=== PATIENT | male | born 1960 | race Caucasian/White ===

== ENCOUNTER 2017-02-11 17:23 | Emergency (ER) | payer OTHER ==
[~2017-02-11] VITALS: Ht 177.8 cm; Wt 83.9 kg
[~2017-02-11 17:23] MED LIST: ACCUPRIL; ACET325 PO; ALBU90OI INH; ALPR.25 PO; ALPR1 PO; AMLO5 PO; ASPI325 PO; ASPIRIN; ATOR10 PO; ATOR40TA PO; AZIT250 PO; Amitriptyline100 MG PO; BP MEDICATION; CEPH500 PO; CHOL10002; CLON.1 PO; CODBUTACEC PO; CYAN100 PO; CYCL10 PO; DULO60 PO; FLUC100 PO; FLUC200 PO; FLUT110OIA IH; FLUT44OIA IH; FOLI400 PO; GABA300 PO; HYDACE5 PO; HYDCOR2.5B TOP; IBUPROFEN; K-Dur20 MEQ PO; Keflex500 MG PO; LEVO750 PO; LISHYD2025 PO; LISI5 PO; MEDICAL MARJUANA; MELO7.5 PO; METO50ER PO; MIRALAX17 GM PO; MULVITMIND PO; NAPR500 PO; ONDA4ODT MM; OXYACE5T PO; OXYC5 PO; PHENA100 PO; POTCHL20ER PO; PRED20 PO; PROM25 PO; PROP60 PO; QUIN10 PO; RXONDA4ODT MM; RXOXYACE PO; SUMA25 PO; TAMS.4ER PO; TRAM50 PO; TRIA80TC TOP; VENL150ER PO; VENL75ER PO; XANEX; ZIPSOR25 MG PO; [UNRECOGNIZED DRUG - REMARK]; vitamin b-1 PO
[2017-02-11 17:58] LABS: BASOPHILS ABSOLUTE AUTO 0.03 K/mm3 (0.00-0.23); BASOPHILS PERCENT AUTO 0 % (0-2); EOSINOPHILS ABSOLUTE AUTO 0.07 K/mm3 (0.00-0.68); EOSINOPHILS PERCENT AUTO 1 % (0-6); Hematocrit 49.5 % (37.0-53.0); Hemoglobin 17.1 g/dL (13.5-17.5); IMMATURE GRAN ABSOLUTE AUTO 0.04 K/mm3 (0.00-0.10); IMMATURE GRAN PERCENT AUTO 0 % (0-1); LYMPHOCYTES ABSOLUTE AUTO 1.79 K/mm3 (0.84-5.20); LYMPHOCYTES PERCENT AUTO 13 % (21-46); MONOCYTES ABSOLUTE AUTO 0.74 K/mm3 (0.16-1.47); MONOCYTES PERCENT AUTO 5 % (4-13); Mean Corpuscular HGB 31.6 pg (26.0-34.0); Mean Corpuscular HGB Conc 34.5 g/dL (31.5-36.5); Mean Corpuscular Volume 92 fL (80-100); Mean Platelet Volume 10.5 fL (9.1-12.4); NEUTROPHILS ABSOLUTE AUTO 11.11 K/mm3 (1.96-9.15); NEUTROPHILS PERCENT AUTO 81 % (41-73); Platelet Count 275 K/mm3 (150-400); RDW Coefficient Variation 13.9 % (11.7-14.2); RDW Standard Deviation 46.2 fL (35.1-46.3); Red Blood Cell Count 5.41 M/mm3 (4.30-5.90); White Blood Cell Count 13.78 K/mm3 (4.00-11.30)
[2017-02-11 18:24] LABS: Alanine Aminotransfer (ALT/SGP 34 U/L (12-78); Albumin, Blood 3.9 g/dL (3.4-5.0); Albumin/Globulin Ratio 0.9 (0.8-1.8); Alk Phos 132 U/L (50-136); Anion Gap 11 mmol/L (6-16); Aspartate Aminotrans (AST/SGOT 30 U/L (12-37); Bilirubin, Total 0.4 mg/dL (0.1-1.0); Blood Urea Nitrogen 6 mg/dL (8-24); Bun/Creatinine Ratio 7.3 (12.0-20.0); CO2, Blood 26 mmol/L (21-32); Calcium, Blood 9.1 mg/dL (8.5-10.1); Chloride, Blood 99 mmol/L (98-108); Creatinine, Blood 0.83 mg/dL (0.60-1.20); Globulin, Blood 4.2 g/dL (2.2-4.0); Glomerular Filtration Rate >60 (60-); Glucose, Blood 134 mg/dL (70-99); Potassium, Blood 2.8 mmol/L (3.5-5.5); Sodium, Blood 136 mmol/L (136-145); Total Protein, Blood 8.1 g/dL (6.4-8.2)
[2017-02-11 18:39] LABS: Source, Urine Clean Catch
[2017-02-11 18:51] LABS: Appearance, Urine Clear (Clear); Bilirubin, Urine Neg (Neg); Blood, Urine Neg (Neg); Color, Urine Yellow (P-Yellow); Glucose Qualitative, Urine Neg (Neg); Ketones, Urine Neg (Neg); Leukocyte Esterase, Urine Neg (Neg); Nitrite, Urine Neg (Neg); Protein, Urine 1+ (Neg); Urobilinogen, Urine NORM (Normal)
[2017-02-11] MEDS ORDERED: Protonix40 MG PO (20:50)
[2017-09-06] MEDS ORDERED: ACET325 PO (08:53)
[2017-09-06] MEDS ORDERED: AMIT50 PO (08:54)
[2017-09-06] MEDS ORDERED: AMLO5 PO (08:55)
[2017-09-06] MEDS ORDERED: Aspir 8181 MG PO (08:55)
[2017-09-06] MEDS ORDERED: ATOR40TA PO (08:56)
[2017-09-06] MEDS ORDERED: CLOP75 PO (08:56)
[2017-09-06] MEDS ORDERED: METO50 PO (08:57)
[2017-09-06] MEDS ORDERED: NITR.4SL SL (08:59)
[2017-09-06] MEDS ORDERED: PANT40 PO (08:59)
[2017-09-06] MEDS ORDERED: TAMS.4ER PO (09:00)
== END 2017-02-11 21:00 | disposition home or self-care (01) ==
LOC: ER 17:23
PROVIDERS: Emergency Medicine
DX: K29.20 Alcoholic gastritis without bleeding (principal); F10.10 Alcohol abuse, uncomplicated; I10 Essential (primary) hypertension; J45.909 Unspecified asthma, uncomplicated; F17.200 Nicotine dependence, unspecified, uncomplicated; Z86.73 Personal history of transient ischemic attack (TIA), and cerebral infarction without residual deficits; Z88.6 Allergy status to analgesic agent; Z88.5 Allergy status to narcotic agent; Z88.8 Allergy status to other drugs, medicaments and biological substances; Z79.899 Other long term (current) drug therapy
CPT/HCPCS: 36415; 74177; 80053; 83690; 85025; 99284; Q9967

== ENCOUNTER 2017-04-09 13:33 | Emergency (ER) | payer OTHER ==
[~2017-04-09] VITALS: Ht 167.6 cm; Wt 108.9 kg
[~2017-04-09 13:33] MED LIST changes: +Protonix40 MG PO
[2017-04-09 14:56] LABS: BASOPHILS ABSOLUTE AUTO 0.05 K/mm3 (0.00-0.23); BASOPHILS PERCENT AUTO 1 % (0-2); EOSINOPHILS ABSOLUTE AUTO 0.07 K/mm3 (0.00-0.68); EOSINOPHILS PERCENT AUTO 1 % (0-6); Hematocrit 47.4 % (37.0-53.0); Hemoglobin 16.8 g/dL (13.5-17.5); IMMATURE GRAN ABSOLUTE AUTO 0.03 K/mm3 (0.00-0.10); IMMATURE GRAN PERCENT AUTO 0 % (0-1); LYMPHOCYTES ABSOLUTE AUTO 1.17 K/mm3 (0.84-5.20); LYMPHOCYTES PERCENT AUTO 13 % (21-46); MONOCYTES ABSOLUTE AUTO 0.89 K/mm3 (0.16-1.47); MONOCYTES PERCENT AUTO 10 % (4-13); Mean Corpuscular HGB 31.6 pg (26.0-34.0); Mean Corpuscular HGB Conc 35.4 g/dL (31.5-36.5); Mean Corpuscular Volume 89 fL (80-100); Mean Platelet Volume 9.9 fL (9.1-12.4); NEUTROPHILS ABSOLUTE AUTO 7.01 K/mm3 (1.96-9.15); NEUTROPHILS PERCENT AUTO 76 % (41-73); Platelet Count 207 K/mm3 (150-400); RDW Coefficient Variation 13.9 % (11.7-14.2); RDW Standard Deviation 45.2 fL (35.1-46.3); Red Blood Cell Count 5.31 M/mm3 (4.30-5.90); White Blood Cell Count 9.22 K/mm3 (4.00-11.30)
[2017-04-09 15:19] LABS: Alanine Aminotransfer (ALT/SGP 84 U/L (12-78); Albumin, Blood 3.6 g/dL (3.4-5.0); Albumin/Globulin Ratio 0.8 (0.8-1.8); Alk Phos 108 U/L (50-136); Anion Gap 11 mmol/L (6-16); Aspartate Aminotrans (AST/SGOT 141 U/L (12-37); Bilirubin, Total 1.4 mg/dL (0.1-1.0); Blood Urea Nitrogen 6 mg/dL (8-24); Bun/Creatinine Ratio 8.2 (12.0-20.0); CO2, Blood 32 mmol/L (21-32); Calcium, Blood 8.8 mg/dL (8.5-10.1); Chloride, Blood 91 mmol/L (98-108); Creatinine, Blood 0.73 mg/dL (0.60-1.20); Globulin, Blood 4.6 g/dL (2.2-4.0); Glomerular Filtration Rate >60 (60-); Glucose, Blood 122 mg/dL (70-99); Potassium, Blood 2.6 mmol/L (3.5-5.5); Sodium, Blood 134 mmol/L (136-145); Total Protein, Blood 8.2 g/dL (6.4-8.2); Troponin I 0.041 ng/mL (0.000-0.040)
[2017-04-09 15:21] LABS: Influenza A Negative (NEGATIVE); Influenza B Negative (NEGATIVE)
[2017-09-06] MEDS ORDERED: ACET325 PO (08:53)
[2017-09-06] MEDS ORDERED: AMIT50 PO (08:54)
[2017-09-06] MEDS ORDERED: Aspir 8181 MG PO (08:55)
[2017-09-06] MEDS ORDERED: AMLO5 PO (08:55)
[2017-09-06] MEDS ORDERED: CLOP75 PO (08:56)
[2017-09-06] MEDS ORDERED: ATOR40TA PO (08:56)
[2017-09-06] MEDS ORDERED: METO50 PO (08:57)
[2017-09-06] MEDS ORDERED: NITR.4SL SL (08:59)
[2017-09-06] MEDS ORDERED: PANT40 PO (08:59)
[2017-09-06] MEDS ORDERED: TAMS.4ER PO (09:00)
== END 2017-04-09 17:51 | disposition home or self-care (01) ==
LOC: ER 13:33
PROVIDERS: Emergency Medicine
DX: R69 Illness, unspecified (principal); R79.89 Other specified abnormal findings of blood chemistry; F10.239 Alcohol dependence with withdrawal, unspecified; I10 Essential (primary) hypertension; J45.909 Unspecified asthma, uncomplicated; F17.200 Nicotine dependence, unspecified, uncomplicated; Z88.8 Allergy status to other drugs, medicaments and biological substances; Z88.5 Allergy status to narcotic agent; Z79.899 Other long term (current) drug therapy; Z86.73 Personal history of transient ischemic attack (TIA), and cerebral infarction without residual deficits
CPT/HCPCS: 36415; 71045; 80053; 83690; 84484; 85025; 87804; 93005; 93010; 96361; 96374; 99284; J2405; J7030

== ENCOUNTER 2017-08-24 00:49 | Emergency (ER) | payer OTHER ==
[~2017-08-24] VITALS: Ht 182.9 cm; Wt 108.9 kg
[2017-08-24] MEDS ORDERED: Amoxicillin875 MG PO (01:43)
[2017-08-24] MEDS ORDERED: IBUP800 PO (01:43)
== END 2017-08-24 02:03 | disposition home or self-care (01) ==
LOC: ER 00:49
DX: K04.7 Periapical abscess without sinus (principal); Z88.8 Allergy status to other drugs, medicaments and biological substances; Z88.5 Allergy status to narcotic agent; Z79.899 Other long term (current) drug therapy; Z79.2 Long term (current) use of antibiotics; I10 Essential (primary) hypertension; J45.909 Unspecified asthma, uncomplicated; F17.200 Nicotine dependence, unspecified, uncomplicated
CPT/HCPCS: 96374; 99283-25; J3010

== ENCOUNTER 2017-08-26 19:02 | Inpatient (IN) | payer OTHER ==
[~2017-08-26] VITALS: Ht 182.9 cm; Wt 101.3 kg
[~2017-08-26 19:02] MED LIST changes: +Amoxicillin875 MG PO; +IBUP800 PO
[2017-08-26 19:54] LABS: BASOPHILS ABSOLUTE AUTO 0.03 K/mm3 (0.00-0.23); BASOPHILS PERCENT AUTO 0 % (0-2); EOSINOPHILS ABSOLUTE AUTO 0.05 K/mm3 (0.00-0.68); EOSINOPHILS PERCENT AUTO 1 % (0-6); IMMATURE GRAN ABSOLUTE AUTO 0.04 K/mm3 (0.00-0.10); IMMATURE GRAN PERCENT AUTO 0 % (0-1); LYMPHOCYTES ABSOLUTE AUTO 1.78 K/mm3 (0.84-5.20); LYMPHOCYTES PERCENT AUTO 20 % (21-46); MONOCYTES ABSOLUTE AUTO 0.66 K/mm3 (0.16-1.47); MONOCYTES PERCENT AUTO 7 % (4-13); Mean Corpuscular HGB 30.5 pg (26.0-34.0); Mean Corpuscular HGB Conc 34.7 g/dL (31.5-36.5); Mean Corpuscular Volume 88 fL (80-100); Mean Platelet Volume 10.3 fL (9.1-12.4); NEUTROPHILS ABSOLUTE AUTO 6.44 K/mm3 (1.96-9.15); NEUTROPHILS PERCENT AUTO 72 % (41-73); Platelet Count 264 K/mm3 (150-400); RDW Coefficient Variation 12.8 % (11.7-14.2); RDW Standard Deviation 41.2 fL (35.1-46.3); Red Blood Cell Count 6.56 M/mm3 (4.30-5.90)
[2017-08-26 19:56] LABS: Hematocrit 57.6 % (37.0-53.0)
[2017-08-26 20:10] LABS: Alanine Aminotransfer (ALT/SGP 41 U/L (12-78); Albumin, Blood 4.1 g/dL (3.4-5.0); Albumin/Globulin Ratio 0.9 (0.8-1.8); Alk Phos 99 U/L (50-136); Anion Gap 14 mmol/L (6-16); Aspartate Aminotrans (AST/SGOT 60 U/L (12-37); Bilirubin, Total 1.4 mg/dL (0.1-1.0); Blood Urea Nitrogen 9 mg/dL (8-24); Bun/Creatinine Ratio 8.2 (12.0-20.0); CO2, Blood 25 mmol/L (21-32); Calcium, Blood 10.3 mg/dL (8.5-10.1); Chloride, Blood 95 mmol/L (98-108); Globulin, Blood 4.5 g/dL (2.2-4.0); Glomerular Filtration Rate >60 (60-); Glucose, Blood 160 mg/dL (70-99); Potassium, Blood 2.9 mmol/L (3.5-5.5); Sodium, Blood 134 mmol/L (136-145); Total Protein, Blood 8.6 g/dL (6.4-8.2); Troponin I 0.057 ng/mL (0.000-0.040)
[2017-08-27 00:02] LABS: Troponin I 0.608 ng/mL (0.000-0.040)
[2017-08-27 05:11] LABS: U Amphetamine Screen DETECTED; U Barbituate Screen Not Detected; U Benzodiazapine Screen DETECTED; U Buprenorphine Screen Not Detected; U Cannabinoids Screen DETECTED; U Cocaine Screen Not Detected; U Methadone Screen Not Detected; U Methamphetamine Screen Not Detected; U Opiates Screen Not Detected; U Oxycodone Screen DETECTED; U Phencyclidine Screen Not Detected; U Propoxyphene Screen Not Detected
[2017-08-27 07:49] LABS: Hematocrit 52.3 % (37.0-53.0); Hemoglobin 17.2 g/dL (13.5-17.5); Mean Corpuscular HGB 29.8 pg (26.0-34.0); Mean Corpuscular HGB Conc 32.9 g/dL (31.5-36.5); Mean Platelet Volume 10.4 fL (9.1-12.4); Platelet Count 189 K/mm3 (150-400); RDW Standard Deviation 42.6 fL (35.1-46.3); Red Blood Cell Count 5.77 M/mm3 (4.30-5.90); White Blood Cell Count 8.71 K/mm3 (4.00-11.30)
[2017-08-27 07:58] LABS: Mean Corpuscular Volume 91 fL (80-100)
[2017-08-27 08:09] LABS: Alanine Aminotransfer (ALT/SGP 41 U/L (12-78); Albumin, Blood 3.6 g/dL (3.4-5.0); Alk Phos 75 U/L (50-136); Anion Gap 7 mmol/L (6-16); Aspartate Aminotrans (AST/SGOT 59 U/L (12-37); Bilirubin, Total 1.1 mg/dL (0.1-1.0); Blood Urea Nitrogen 11 mg/dL (8-24); Bun/Creatinine Ratio 10.7 (12.0-20.0); CO2, Blood 32 mmol/L (21-32); Calcium, Blood 8.8 mg/dL (8.5-10.1); Chloride, Blood 99 mmol/L (98-108); Creatinine, Blood 1.03 mg/dL (0.60-1.20); Globulin, Blood 3.7 g/dL (2.2-4.0); Glomerular Filtration Rate >60 (60-); Glucose, Blood 95 mg/dL (70-99); Potassium, Blood 3.5 mmol/L (3.5-5.5); Sodium, Blood 138 mmol/L (136-145); Total Protein, Blood 7.3 g/dL (6.4-8.2)
[2017-08-27 09:05] LABS: Troponin I 0.641 ng/mL (0.000-0.040)
[2017-08-27 14:34] LABS: Campylobacter Sp Not Detected (NOT DETECT); Enteroaggregative E. coli-EAEC Not Detected (NOT DETECT); Enterotoxigenic E. coli-ETEC Not Detected (NOT DETECT); Plesiomonas Shigelloides Not Detected (NOT DETECT); Salmonella Sp Not Detected (NOT DETECT); Vibrio Cholerae Not Detected (NOT DETECT); Vibrio Sp Not Detected (NOT DETECT); Yersinia Enterocolitica Not Detected (NOT DETECT)
[2017-08-27 14:35] LABS: Adenovirus F 40/41 Not Detected (NOT DETECT); Astrovirus Not Detected (NOT DETECT); Cryptosporidium Not Detected (NOT DETECT); Cyclospora Cayetanensis Not Detected (NOT DETECT); E. Coli O157 Not Detected (NOT DETECT); Entamoeba Histolytica Not Detected (NOT DETECT); Giardia Lamblia Not Detected (NOT DETECT); Norovirus GI/GII Not Detected (NOT DETECT); Rotavirus A Not Detected (NOT DETECT); Sapovirus Not Detected (NOT DETECT); Shiga Toxin-prod E. coli-STEC Not Detected (NOT DETECT); Shigella/Enteroin E. coli-EIEC Not Detected (NOT DETECT)
[2017-08-27 14:52] LABS: Creatine Kinase MB 3.3 ng/mL (0.0-3.6); Creatine Kinase MB Index 2.6 (0.0-4.0)
[2017-08-27 19:37] LABS: Enteropathogenic E. coli-EPEC Detected (NOT DETECT)
[2017-08-28 05:04] LABS: BASOPHILS ABSOLUTE AUTO 0.02 K/mm3 (0.00-0.23); BASOPHILS PERCENT AUTO 0 % (0-2); EOSINOPHILS ABSOLUTE AUTO 0.09 K/mm3 (0.00-0.68); EOSINOPHILS PERCENT AUTO 1 % (0-6); Hematocrit 49.1 % (37.0-53.0); Hemoglobin 16.6 g/dL (13.5-17.5); IMMATURE GRAN ABSOLUTE AUTO 0.03 K/mm3 (0.00-0.10); IMMATURE GRAN PERCENT AUTO 0 % (0-1); LYMPHOCYTES ABSOLUTE AUTO 1.81 K/mm3 (0.84-5.20); LYMPHOCYTES PERCENT AUTO 21 % (21-46); MONOCYTES ABSOLUTE AUTO 0.81 K/mm3 (0.16-1.47); MONOCYTES PERCENT AUTO 9 % (4-13); Mean Corpuscular HGB 30.1 pg (26.0-34.0); Mean Corpuscular HGB Conc 33.8 g/dL (31.5-36.5); Mean Corpuscular Volume 89 fL (80-100); Mean Platelet Volume 10.5 fL (9.1-12.4); NEUTROPHILS ABSOLUTE AUTO 5.88 K/mm3 (1.96-9.15); NEUTROPHILS PERCENT AUTO 68 % (41-73); Platelet Count 200 K/mm3 (150-400); RDW Coefficient Variation 12.5 % (11.7-14.2); Red Blood Cell Count 5.52 M/mm3 (4.30-5.90); White Blood Cell Count 8.64 K/mm3 (4.00-11.30)
[2017-08-28 05:37] LABS: Albumin, Blood 3.4 g/dL (3.4-5.0); Anion Gap 9 mmol/L (6-16); Blood Urea Nitrogen 12 mg/dL (8-24); Bun/Creatinine Ratio 14.9 (12.0-20.0); CO2, Blood 27 mmol/L (21-32); Calcium, Blood 8.5 mg/dL (8.5-10.1); Chloride, Blood 100 mmol/L (98-108); Creatinine, Blood 0.81 mg/dL (0.60-1.20); Glomerular Filtration Rate >60 (60-); Glucose, Blood 90 mg/dL (70-99); Phosphorus, Blood 2.7 mg/dL (2.5-4.9); Potassium, Blood 3.6 mmol/L (3.5-5.5); Sodium, Blood 136 mmol/L (136-145)
[2017-08-29 03:53] LABS: BASOPHILS ABSOLUTE AUTO 0.03 K/mm3 (0.00-0.23); BASOPHILS PERCENT AUTO 0 % (0-2); EOSINOPHILS ABSOLUTE AUTO 0.11 K/mm3 (0.00-0.68); EOSINOPHILS PERCENT AUTO 2 % (0-6); Hematocrit 46.1 % (37.0-53.0); Hemoglobin 15.7 g/dL (13.5-17.5); IMMATURE GRAN ABSOLUTE AUTO 0.01 K/mm3 (0.00-0.10); IMMATURE GRAN PERCENT AUTO 0 % (0-1); LYMPHOCYTES ABSOLUTE AUTO 1.34 K/mm3 (0.84-5.20); LYMPHOCYTES PERCENT AUTO 19 % (21-46); MONOCYTES ABSOLUTE AUTO 0.66 K/mm3 (0.16-1.47); MONOCYTES PERCENT AUTO 9 % (4-13); Mean Corpuscular HGB 30.7 pg (26.0-34.0); Mean Corpuscular HGB Conc 34.1 g/dL (31.5-36.5); Mean Corpuscular Volume 90 fL (80-100); Mean Platelet Volume 10.3 fL (9.1-12.4); NEUTROPHILS ABSOLUTE AUTO 4.98 K/mm3 (1.96-9.15); NEUTROPHILS PERCENT AUTO 70 % (41-73); Platelet Count 146 K/mm3 (150-400); RDW Coefficient Variation 12.6 % (11.7-14.2); RDW Standard Deviation 41.8 fL (35.1-46.3); Red Blood Cell Count 5.11 M/mm3 (4.30-5.90); White Blood Cell Count 7.13 K/mm3 (4.00-11.30)
[2017-08-29 04:11] LABS: Albumin, Blood 3.1 g/dL (3.4-5.0); Anion Gap 10 mmol/L (6-16); Blood Urea Nitrogen 14 mg/dL (8-24); Bun/Creatinine Ratio 17.2 (12.0-20.0); CO2, Blood 28 mmol/L (21-32); Calcium, Blood 8.3 mg/dL (8.5-10.1); Chloride, Blood 102 mmol/L (98-108); Creatinine, Blood 0.82 mg/dL (0.60-1.20); Glomerular Filtration Rate >60 (60-); Glucose, Blood 80 mg/dL (70-99); Phosphorus, Blood 3.8 mg/dL (2.5-4.9); Potassium, Blood 3.4 mmol/L (3.5-5.5); Sodium, Blood 140 mmol/L (136-145)
[2017-08-30 04:13] LABS: BASOPHILS ABSOLUTE AUTO 0.04 K/mm3 (0.00-0.23); BASOPHILS PERCENT AUTO 1 % (0-2); EOSINOPHILS ABSOLUTE AUTO 0.18 K/mm3 (0.00-0.68); EOSINOPHILS PERCENT AUTO 2 % (0-6); Hemoglobin 16.4 g/dL (13.5-17.5); IMMATURE GRAN ABSOLUTE AUTO 0.04 K/mm3 (0.00-0.10); IMMATURE GRAN PERCENT AUTO 1 % (0-1); LYMPHOCYTES ABSOLUTE AUTO 2.21 K/mm3 (0.84-5.20); LYMPHOCYTES PERCENT AUTO 27 % (21-46); MONOCYTES ABSOLUTE AUTO 1.02 K/mm3 (0.16-1.47); MONOCYTES PERCENT AUTO 12 % (4-13); Mean Corpuscular HGB 30.6 pg (26.0-34.0); Mean Corpuscular HGB Conc 33.5 g/dL (31.5-36.5); Mean Corpuscular Volume 91 fL (80-100); Mean Platelet Volume 10.5 fL (9.1-12.4); NEUTROPHILS ABSOLUTE AUTO 4.79 K/mm3 (1.96-9.15); NEUTROPHILS PERCENT AUTO 58 % (41-73); Platelet Count 169 K/mm3 (150-400); RDW Standard Deviation 43.4 fL (35.1-46.3); Red Blood Cell Count 5.36 M/mm3 (4.30-5.90); White Blood Cell Count 8.28 K/mm3 (4.00-11.30)
[2017-08-30 04:30] LABS: Anion Gap 8 mmol/L (6-16); Blood Urea Nitrogen 11 mg/dL (8-24); CO2, Blood 30 mmol/L (21-32); Calcium, Blood 8.6 mg/dL (8.5-10.1); Chloride, Blood 102 mmol/L (98-108); Glomerular Filtration Rate >60 (60-); Glucose, Blood 86 mg/dL (70-99); Magnesium, Blood 1.9 mg/dL (1.6-2.4); Potassium, Blood 4.1 mmol/L (3.5-5.5); Sodium, Blood 140 mmol/L (136-145)
[2017-08-31 03:59] LABS: BASOPHILS ABSOLUTE AUTO 0.03 K/mm3 (0.00-0.23); BASOPHILS PERCENT AUTO 0 % (0-2); EOSINOPHILS ABSOLUTE AUTO 0.15 K/mm3 (0.00-0.68); EOSINOPHILS PERCENT AUTO 2 % (0-6); Hematocrit 47.3 % (37.0-53.0); IMMATURE GRAN ABSOLUTE AUTO 0.03 K/mm3 (0.00-0.10); IMMATURE GRAN PERCENT AUTO 0 % (0-1); LYMPHOCYTES ABSOLUTE AUTO 1.65 K/mm3 (0.84-5.20); LYMPHOCYTES PERCENT AUTO 18 % (21-46); MONOCYTES ABSOLUTE AUTO 1.18 K/mm3 (0.16-1.47); MONOCYTES PERCENT AUTO 13 % (4-13); Mean Corpuscular HGB 30.8 pg (26.0-34.0); Mean Corpuscular HGB Conc 33.8 g/dL (31.5-36.5); Mean Corpuscular Volume 91 fL (80-100); Mean Platelet Volume 10.7 fL (9.1-12.4); NEUTROPHILS ABSOLUTE AUTO 6.07 K/mm3 (1.96-9.15); NEUTROPHILS PERCENT AUTO 67 % (41-73); Platelet Count 182 K/mm3 (150-400); RDW Standard Deviation 43.4 fL (35.1-46.3); Red Blood Cell Count 5.19 M/mm3 (4.30-5.90); White Blood Cell Count 9.11 K/mm3 (4.00-11.30)
[2017-08-31 04:16] LABS: Anion Gap 8 mmol/L (6-16); Blood Urea Nitrogen 9 mg/dL (8-24); Bun/Creatinine Ratio 10.2 (12.0-20.0); CO2, Blood 29 mmol/L (21-32); Calcium, Blood 8.3 mg/dL (8.5-10.1); Chloride, Blood 103 mmol/L (98-108); Creatinine, Blood 0.88 mg/dL (0.60-1.20); Glomerular Filtration Rate >60 (60-); Glucose, Blood 94 mg/dL (70-99); Potassium, Blood 3.7 mmol/L (3.5-5.5); Sodium, Blood 140 mmol/L (136-145)
[2017-09-02 05:21] LABS: Anion Gap 5 mmol/L (6-16); Blood Urea Nitrogen 8 mg/dL (8-24); Bun/Creatinine Ratio 9.1 (12.0-20.0); CO2, Blood 31 mmol/L (21-32); Calcium, Blood 8.4 mg/dL (8.5-10.1); Chloride, Blood 104 mmol/L (98-108); Creatinine, Blood 0.88 mg/dL (0.60-1.20); Glomerular Filtration Rate >60 (60-); Glucose, Blood 91 mg/dL (70-99); Potassium, Blood 3.8 mmol/L (3.5-5.5); Sodium, Blood 140 mmol/L (136-145)
[2017-09-02] MEDS ORDERED: ASPI81CH PO (15:15)
[2017-09-02] MEDS ORDERED: DOCU100 PO (15:15)
[2017-09-02] MEDS ORDERED: FURO20 PO (15:16)
[2017-09-02] MEDS ORDERED: ATOR40TA PO (15:16)
== END 2017-09-02 15:52 | disposition home or self-care (01) | DRG 280 ==
LOC: ER 19:02 → MEDS 22:49 → ICUW 22:49 → ER 22:49 → ICUW 08-27 00:01 → MEDS 08-27 00:07 → ICUW 08-28 05:40 → MEDS 08-31 04:56 → ENPENDDIS 09-02 14:50 → EDPENDDIS 09-02 14:50 → MEDS 09-02 15:52
PROVIDERS: Emergency Medicine; Family Medicine; Internal Medicine; Internal Medicine Cardiovascular Disease
DX: I21.4 Non-ST elevation (NSTEMI) myocardial infarction (principal); G92 Toxic encephalopathy; F10.231 Alcohol dependence with withdrawal delirium; E87.1 Hypo-osmolality and hyponatremia; K52.9 Noninfective gastroenteritis and colitis, unspecified; E87.6 Hypokalemia; E86.0 Dehydration; E83.42 Hypomagnesemia; B96.20 Unspecified Escherichia coli [E. coli] as the cause of diseases classified elsewhere; I25.119 Atherosclerotic heart disease of native coronary artery with unspecified angina pectoris; I10 Essential (primary) hypertension; I69.320 Aphasia following cerebral infarction; J45.909 Unspecified asthma, uncomplicated; K76.0 Fatty (change of) liver, not elsewhere classified; F15.10 Other stimulant abuse, uncomplicated; F13.10 Sedative, hypnotic or anxiolytic abuse, uncomplicated; F12.10 Cannabis abuse, uncomplicated; F11.10 Opioid abuse, uncomplicated; R45.1 Restlessness and agitation; F17.220 Nicotine dependence, chewing tobacco, uncomplicated; Z78.1 Physical restraint status; Z79.899 Other long term (current) drug therapy
CPT/HCPCS: 36415; 71045; 74177; 78452; 80048; 80053; 80069; 82550; 82553; 83605; 83690; 83735; 84145; 84484; 85025; 85027; 87507; 93005; 93010; 93017; 93306; 96361; 96374; 96375; 99285-25; A9500; C9113; J0360; J0744; J1650; J1885; J1940; J2060; J2405; J2785; J3010; J3411; J3475; J3480; J7030; J7042; Q9967

== ENCOUNTER 2018-05-23 13:13 | Emergency (ER) | payer OTHER ==
[~2018-05-23] VITALS: Ht 182.9 cm; Wt 104.3 kg
[~2018-05-23 13:13] MED LIST changes: +AMIT50 PO; +ASPI81CH PO; +Aspir 8181 MG PO; +CLOP75 PO; +DOCU100 PO; +FURO20 PO; +METO50 PO; +NITR.4SL SL; +PANT40 PO
[2018-05-23 14:12] LABS: BASOPHILS ABSOLUTE AUTO 0.04 K/mm3 (0.00-0.23); BASOPHILS PERCENT AUTO 0 % (0-2); EOSINOPHILS ABSOLUTE AUTO 0.03 K/mm3 (0.00-0.68); EOSINOPHILS PERCENT AUTO 0 % (0-6); Hematocrit 50.5 % (37.0-53.0); Hemoglobin 17.7 g/dL (13.5-17.5); IMMATURE GRAN ABSOLUTE AUTO 0.03 K/mm3 (0.00-0.10); IMMATURE GRAN PERCENT AUTO 0 % (0-1); LYMPHOCYTES ABSOLUTE AUTO 2.29 K/mm3 (0.84-5.20); LYMPHOCYTES PERCENT AUTO 23 % (21-46); MONOCYTES ABSOLUTE AUTO 0.91 K/mm3 (0.16-1.47); MONOCYTES PERCENT AUTO 9 % (4-13); Mean Corpuscular HGB 32.3 pg (26.0-34.0); Mean Corpuscular Volume 92 fL (80-100); Mean Platelet Volume 9.9 fL (9.1-12.4); NEUTROPHILS ABSOLUTE AUTO 6.66 K/mm3 (1.96-9.15); NEUTROPHILS PERCENT AUTO 67 % (41-73); Platelet Count 282 K/mm3 (150-400); RDW Coefficient Variation 13.7 % (11.7-14.2); RDW Standard Deviation 46.6 fL (35.1-46.3); Red Blood Cell Count 5.48 M/mm3 (4.30-5.90); White Blood Cell Count 9.96 K/mm3 (4.00-11.30)
[2018-05-23 14:47] LABS: Alanine Aminotransfer (ALT/SGP 66 U/L (12-78); Albumin, Blood 3.9 g/dL (3.4-5.0); Alk Phos 143 U/L (50-136); Anion Gap 15 mmol/L (6-16); Aspartate Aminotrans (AST/SGOT 85 U/L (12-37); Bilirubin, Total 0.9 mg/dL (0.1-1.0); Blood Urea Nitrogen 5 mg/dL (8-24); Bun/Creatinine Ratio 6.8 (12.0-20.0); CO2, Blood 26 mmol/L (21-32); Calcium, Blood 8.8 mg/dL (8.5-10.1); Chloride, Blood 98 mmol/L (98-108); Creatinine, Blood 0.73 mg/dL (0.60-1.20); Glomerular Filtration Rate >60 (60-); Glucose, Blood 105 mg/dL (70-99); Potassium, Blood 3.1 mmol/L (3.5-5.5); Sodium, Blood 139 mmol/L (136-145); Total Protein, Blood 7.9 g/dL (6.4-8.2); Troponin I 0.034 ng/mL (0.000-0.040)
[2018-05-23] MEDS ORDERED: Prinivil10 MG PO (17:05)
== END 2018-05-23 18:33 | disposition home or self-care (01) ==
LOC: ER 13:13
PROVIDERS: Internal Medicine
DX: R07.9 Chest pain, unspecified (principal); F10.129 Alcohol abuse with intoxication, unspecified; J45.909 Unspecified asthma, uncomplicated; I10 Essential (primary) hypertension; L40.9 Psoriasis, unspecified; Z88.8 Allergy status to other drugs, medicaments and biological substances; Z79.82 Long term (current) use of aspirin; Z79.899 Other long term (current) drug therapy; Z88.5 Allergy status to narcotic agent
CPT/HCPCS: 36415; 71045; 80053; 84484; 85025; 93005; 93010; 96361; 96374; 96375; 96376; 99285-25; G0480; J2060; J7030

== ENCOUNTER 2023-10-04 16:07 | Emergency (ER) | payer OTHER ==
[~2023-10-04] VITALS: Ht 182.9 cm; Wt 108.9 kg
[~2023-10-04 16:07] MED LIST changes: +Prinivil10 MG PO
[2023-10-04] MEDS ORDERED: LORazepam 2 MG/ML 1ML Injection IV PRN (16:20)
[2023-10-04 16:33] LABS: BASOPHILS ABSOLUTE AUTO 0.06 K/mm3 (0.00-0.23); BASOPHILS PERCENT AUTO 1 % (0-2); EOSINOPHILS ABSOLUTE AUTO 0.01 K/mm3 (0.00-0.68); EOSINOPHILS PERCENT AUTO 0 % (0-6); Hematocrit 49.1 % (37.0-53.0); Hemoglobin 16.9 g/dL (13.5-17.5); IMMATURE GRAN ABSOLUTE AUTO 0.02 K/mm3 (0.00-0.10); IMMATURE GRAN PERCENT AUTO 0 % (0-1); LYMPHOCYTES ABSOLUTE AUTO 0.65 K/mm3 (0.84-5.20); LYMPHOCYTES PERCENT AUTO 8 % (21-46); MONOCYTES ABSOLUTE AUTO 0.77 K/mm3 (0.16-1.47); MONOCYTES PERCENT AUTO 9 % (4-13); Mean Corpuscular HGB 32.3 pg (26.0-34.0); Mean Corpuscular HGB Conc 34.4 g/dL (31.5-36.5); Mean Corpuscular Volume 94 fL (80-100); Mean Platelet Volume 9.7 fL (9.1-12.4); NEUTROPHILS ABSOLUTE AUTO 6.94 K/mm3 (1.96-9.15); NEUTROPHILS PERCENT AUTO 82 % (41-73); Platelet Count 194 K/mm3 (150-400); RDW Coefficient Variation 13.5 % (11.7-14.2); RDW Standard Deviation 46.6 fL (35.1-46.3); Red Blood Cell Count 5.24 M/mm3 (4.30-5.90); White Blood Cell Count 8.45 K/mm3 (4.00-11.30)
[2023-10-04 17:03] LABS: Albumin/Globulin Ratio 0.9 (0.8-1.8); Bilirubin, Total 1.1 mg/dL (0.1-1.0); Bun/Creatinine Ratio 15.5 (12.0-20.0); Calcium, Blood 9.6 mg/dL (8.5-10.1); Creatinine, Blood 0.77 mg/dL (0.60-1.20); Globulin, Blood 4.6 g/dL (2.2-4.0); Potassium, Blood 3.9 mmol/L (3.5-5.5); Total Protein, Blood 8.6 g/dL (6.4-8.2)
[2023-10-04 17:16] LABS: Source, Urine Clean Catch
[2023-10-04 17:20] LABS: Appearance, Urine Cloudy (Clear); Bilirubin, Urine Neg (Neg); Blood, Urine 2+ (Neg); Color, Urine Amber (P-Yellow); Glucose Qualitative, Urine Neg (Neg); Ketones, Urine Neg (Neg); Leukocyte Esterase, Urine Neg (Neg); Nitrite, Urine Neg (Neg); Protein, Urine 3+ (Neg); Specific Gravity, Urine 1.015 (1.003-1.022); Urobilinogen, Urine 1+ (Normal)
[2023-10-04 17:28] LABS: Amorphous Mod (0-Heavy)
[2023-10-04 17:29] LABS: Calcium Oxalate Crystals Rare /hpf
[2023-10-04 17:30] LABS: Bacteria Few /hpf; Squamous Epithelial Cells Not Seen /hpf (Few); Transitional Epithelial Cells Rare /hpf (0-Rare)
[2023-10-04] MEDS ORDERED: Metoprolol Succinate 25 MG TABCR PO ONE (19:00)
[2023-10-04] MEDS ORDERED: Metoprolol Tartrate 1 MG/ML 5 ML VIAL IV ONE (19:00)
[2023-10-04] MEDS ORDERED: HydrALAZINE HCl 20 MG / ML 1ML Vial IV ONE (19:40)
[2023-10-04] MEDS ORDERED: Toprol Xl25 MG PO (20:10)
[2023-10-04] MEDS ORDERED: Neurontin 100100 MG PO (20:10)
[2023-10-04 21:15] VITALS: BP 154/90
== END 2023-10-04 21:32 | disposition home or self-care (01) ==
LOC: ER 16:07
PROVIDERS: Emergency Medicine
DX: R51.9 Headache, unspecified (principal); F10.139 Alcohol abuse with withdrawal, unspecified; I10 Essential (primary) hypertension; R25.1 Tremor, unspecified; J45.909 Unspecified asthma, uncomplicated; Z86.73 Personal history of transient ischemic attack (TIA), and cerebral infarction without residual deficits; Z87.891 Personal history of nicotine dependence; Z79.02 Long term (current) use of antithrombotics/antiplatelets; Z79.82 Long term (current) use of aspirin; Z79.899 Other long term (current) drug therapy; Z88.5 Allergy status to narcotic agent; Z88.8 Allergy status to other drugs, medicaments and biological substances
CPT/HCPCS: 70450; 80053; 80320; 81001; 85025; 93005; 93010; 96374; 96375; 99285-25; A9270; J0360; J2060

== ENCOUNTER 2023-10-18 11:22 | Emergency (ER) | payer SELFPAY ==
[~2023-10-18] VITALS: Ht 182.9 cm; Wt 108.9 kg
[~2023-10-18 11:22] MED LIST changes: +Neurontin 100100 MG PO; +Toprol Xl25 MG PO
[2023-10-18 11:48] VITALS: BP 183/116
[2023-10-18 12:12] LABS: Albumin, Blood 3.9 g/dL (3.4-5.0); Albumin/Globulin Ratio 0.9 (0.8-1.8); BASOPHILS ABSOLUTE AUTO 0.07 K/mm3 (0.00-0.23); BASOPHILS PERCENT AUTO 1 % (0-2); Bilirubin, Total 0.6 mg/dL (0.1-1.0); Bun/Creatinine Ratio 11.1 (12.0-20.0); Calcium, Blood 9.5 mg/dL (8.5-10.1); Creatinine, Blood 0.72 mg/dL (0.60-1.20); EOSINOPHILS ABSOLUTE AUTO 0.02 K/mm3 (0.00-0.68); EOSINOPHILS PERCENT AUTO 0 % (0-6); Globulin, Blood 4.5 g/dL (2.2-4.0); Hematocrit 49.4 % (37.0-53.0); Hemoglobin 16.8 g/dL (13.5-17.5); IMMATURE GRAN ABSOLUTE AUTO 0.04 K/mm3 (0.00-0.10); IMMATURE GRAN PERCENT AUTO 0 % (0-1); LYMPHOCYTES ABSOLUTE AUTO 1.34 K/mm3 (0.84-5.20); LYMPHOCYTES PERCENT AUTO 14 % (21-46); MONOCYTES ABSOLUTE AUTO 0.68 K/mm3 (0.16-1.47); MONOCYTES PERCENT AUTO 7 % (4-13); Mean Corpuscular HGB 31.7 pg (26.0-34.0); Mean Corpuscular Volume 93 fL (80-100); Mean Platelet Volume 9.8 fL (9.1-12.4); NEUTROPHILS PERCENT AUTO 78 % (41-73); Platelet Count 269 K/mm3 (150-400); Potassium, Blood 3.8 mmol/L (3.5-5.5); RDW Coefficient Variation 13.5 % (11.7-14.2); RDW Standard Deviation 46.6 fL (35.1-46.3); Total Protein, Blood 8.4 g/dL (6.4-8.2); White Blood Cell Count 9.55 K/mm3 (4.00-11.30)
[2023-10-18] MEDS ORDERED: Fluconazole 100 MG Tab PO ONE (14:10)
[2023-10-18] MEDS ORDERED: Diflucan100 MG PO (14:52)
== END 2023-10-18 15:22 | disposition home or self-care (01) ==
LOC: ER 11:22
PROVIDERS: Emergency Medicine
DX: F10.129 Alcohol abuse with intoxication, unspecified (principal); Y90.8 Blood alcohol level of 240 mg/100 ml or more; B37.49 Other urogenital candidiasis; I10 Essential (primary) hypertension; J45.909 Unspecified asthma, uncomplicated; Z88.8 Allergy status to other drugs, medicaments and biological substances; Z88.5 Allergy status to narcotic agent; Z79.82 Long term (current) use of aspirin; Z79.899 Other long term (current) drug therapy; Z87.891 Personal history of nicotine dependence
CPT/HCPCS: 70450; 80053; 80320; 82947; 85025; A9270

== ENCOUNTER 2023-11-20 10:18 | Observation (INO) | payer MEDICARE ==
[~2023-11-20] VITALS: Ht 182.9 cm; Wt 99.0 kg
[~2023-11-20 10:18] MED LIST changes: +ATOR20 PO; +B-1100 M1 PO; +Diflucan100 MG PO; +GABA400 PO; +METO25ER PO; -METO50 PO; +MULVITA PO; +NYSTRIT TOP; +PERCOCET 10-321 EA13 PO; +SULTRIDS PO; +TRIDERM28.4 GM TOP; +VISBIOME 112.51 EACH PO
[2023-11-20 12:17] LABS: BASOPHILS ABSOLUTE AUTO 0.02 K/mm3 (0.00-0.23); BASOPHILS PERCENT AUTO 0 % (0-2); EOSINOPHILS PERCENT AUTO 0 % (0-6); Hematocrit 50.3 % (37.0-53.0); Hemoglobin 17.5 g/dL (13.5-17.5); IMMATURE GRAN ABSOLUTE AUTO 0.05 K/mm3 (0.00-0.10); IMMATURE GRAN PERCENT AUTO 1 % (0-1); LYMPHOCYTES ABSOLUTE AUTO 0.85 K/mm3 (0.84-5.20); LYMPHOCYTES PERCENT AUTO 9 % (21-46); MONOCYTES ABSOLUTE AUTO 0.61 K/mm3 (0.16-1.47); MONOCYTES PERCENT AUTO 6 % (4-13); Mean Corpuscular HGB 31.5 pg (26.0-34.0); Mean Corpuscular HGB Conc 34.8 g/dL (31.5-36.5); Mean Corpuscular Volume 91 fL (80-100); Mean Platelet Volume 10.6 fL (9.1-12.4); NEUTROPHILS ABSOLUTE AUTO 8.02 K/mm3 (1.96-9.15); NEUTROPHILS PERCENT AUTO 84 % (41-73); Platelet Count 293 K/mm3 (150-400); RDW Coefficient Variation 12.7 % (11.7-14.2); RDW Standard Deviation 42.3 fL (35.1-46.3); Red Blood Cell Count 5.55 M/mm3 (4.30-5.90); White Blood Cell Count 9.55 K/mm3 (4.00-11.30)
[2023-11-20 12:35] LABS: C-REACTIVE PROTEIN, EXT RANGE 1.27 mg/dL (0.000-0.300)
[2023-11-20 12:37] LABS: Albumin, Blood 4.4 g/dL (3.4-5.0); Albumin/Globulin Ratio 0.9 (0.8-1.8); Bilirubin, Total 0.9 mg/dL (0.1-1.0); Bun/Creatinine Ratio 16.9 (12.0-20.0); Calcium, Blood 10.3 mg/dL (8.5-10.1); Creatinine, Blood 0.77 mg/dL (0.60-1.20); Globulin, Blood 4.8 g/dL (2.2-4.0); Total Protein, Blood 9.2 g/dL (6.4-8.2)
[2023-11-20] MEDS ORDERED: OxyCODONE 10/Acetamin 325 TABLET PO ONE (15:50)
[2023-11-20] MEDS ORDERED: OxyCODONE HCL 5 MG TAB PO PRN (19:10)
[2023-11-20] MEDS ORDERED: Ondansetron 4 MG TAB PO PRN (19:10)
[2023-11-20] MEDS ORDERED: NS 1,000 ML IV SCH (19:15)
[2023-11-20] MEDS ORDERED: FLU VACC TS2024-25(6MOS UP)/PF 45 MCG/0.5 ML SYRINGE IM SCH (19:15)
[2023-11-20] MEDS ORDERED: Acetaminophen 325 MG TABLET PO PRN (19:20)
[2023-11-20] MEDS ORDERED: Melatonin 5 MG Tablet PO PRN (19:30)
[2023-11-20] MEDS ORDERED: Albuterol 2.5 MG/3 ML VIAL INH PRN (19:35)
[2023-11-20] MEDS ORDERED: NS 1,000 ML IV ONE (20:00)
[2023-11-20] MEDS ORDERED: Gabapentin 400 MG Cap PO SCH (21:00)
[2023-11-20] MEDS ORDERED: Nystatin/Triamcinolone Ointment 15 GM TOP SCH (21:00)
[2023-11-20] MEDS ORDERED: Docusate Sodium 100 MG Cap PO SCH (21:00)
[2023-11-20] MEDS ORDERED: Sennosides 8.6 MG Tab PO SCH (21:00)
[2023-11-20 21:13] VITALS: BP 178/87
[2023-11-20 21:30] LABS: U Amphetamine Screen Not Detected; U Barbituate Screen Not Detected; U Benzodiazapine Screen Not Detected; U Buprenorphine Screen Not Detected; U Cannabinoids Screen Not Detected; U Cocaine Screen Not Detected; U Methadone Screen Not Detected; U Methamphetamine Screen Not Detected; U Opiates Screen Not Detected; U Oxycodone Screen DETECTED; U Phencyclidine Screen Not Detected
[2023-11-20] MEDS ORDERED: HydrALAZINE HCl 20 MG / ML 1ML Vial IV PRN (23:00)
[2023-11-21 00:30] VITALS: BP 124/59
[2023-11-21 03:38] VITALS: BP 142/67
--- NOTE | 2023-11-21 06:07 | NUR ---
SURGICAL SCHEDULER SUMMARY/NEW ADMIT PT ADMIT FOR PAIN IN FEET AND SCROTUM. PT IS ALERT AND ORIENTED; ATYPICAL MENTATION. ABLE TO ANSWER ORIENTATION QUESTIONS AND FOLLOW DIRECTIONS. PT IS A POOR HISTORIAN FOR MEDS AND MEDICAL HX. PT PRESENTS WITH KNOWLEDGE DEFICITS AND BASIC UNDERSTANDING. PT HX OF STROKE WITH PERCEPTIBLE LEFT SIDE WEAKNESS AND EXPRESSIVE APHASIA. SPEECH IS SLOW AND BROKEN. PT NEEDS ADDITIONAL TIME FOR RESPONSE AND COMMUNICATION. PT USES A WALKER FOR AMBULATION; PT REPORTS FALLING AT HOME WITH NO APPARENT INJURY. PT REPORTS 9/10 PAIN IN BILAERAL FEET AND SCROTUM. PT GIVEN OXYCODONE Q4 WITH ADDITIONAL TYLENOL. PT STATES PAIN IS UNRELIEVED. PT STATES HE WAS TAKING 20MG OF PERCOSET PRIOR TO DISCHARGE FROM SNF AND WHEN AT HOME. PT IS UNABLE TO STATE ANY OTHER MEDICATION HE WAS TAKING OR WHEN HE LAST TOOK IT. HTN WITH INITAL VITALS; CALL TO HOSPITALIST. NEW ORDER FOR HYDRALAZINE 10MG Q4 PRN FOR SYSTOLIC GREATER THAN 180. WHEN BLOOD PRESSURE REASSESSED, IT WAS IMPROVED ANT OUTSIDE PARAMETERS FOR MEDICATION. PT EDUCATION ABOUT SMOKING/INGNITION SOURCES. PT DOES NOT SMOKE AND DENIES HAVING ANY IGNITION SOURCES. PT EDUCATED ON ROOM, CALL LIGHT, AND FALL PREVENTION. PT IS ABLE TO MAKE NEEDS KNOWN AND USES CALL LIGHT APPROPRIATELY. PT EXPRESSED HE IS FEARFUL TO RETURN HOME BECAUSE HE CAN'T CARE FOR HIMSELF AND THE PAIN IS SO BAD IT INTERFERES WITH DAILY ACTIVITY. PT HAS REQUESTED ADDITIONAL MEDICATION TO TX PAIN.
[2023-11-21 07:27] VITALS: BP 154/88
[2023-11-21] MEDS ORDERED: Enoxaparin 40 MG/0.4 ML SYR SC SCH (09:00)
[2023-11-21] MEDS ORDERED: Aspirin 81 MG Chew PO SCH (09:00)
[2023-11-21] MEDS ORDERED: Metoprolol Succinate 25 MG TABCR PO SCH (09:00)
[2023-11-21] MEDS ORDERED: Atorvastatin 10 MG Tab PO SCH (09:00)
[2023-11-21] MEDS ORDERED: OxyCODONE 5 mg/Acetamin 325 mg TABLET PO PRN (09:10)
[2023-11-21] MEDS ORDERED: Multivitamins 1 Tab PO SCH (12:00)
[2023-11-21] MEDS ORDERED: Thiamine HCl 100 MG Tab PO SCH (12:00)
[2023-11-21 15:30] VITALS: BP 148/79
--- NOTE | 2023-11-21 18:45 | NUR ---
NO ACUTE CHANGES. PT PAIN CONTROLLED WITH CURRENT MEDICAITON REGIMEN. PT ENCOURAGED TO DANGLE LEGS IN BED. SKIN IS RED AND INFLAMMED. PLAN FOR SNF PLACEMENT. ABLE TO MAKE NEEDS KNOWN. PT TEARFUL TODAY
[2023-11-21 19:40] VITALS: BP 164/73
[2023-11-21] MEDS ORDERED: Tetrahydrozoline 0.05% Opth Soln 15 ML BOTHEYES PRN (23:25)
[2023-11-21] MEDS ORDERED: Zolpidem Tartrate 5 MG Tab PO ONE (23:25)
[2023-11-22 03:14] VITALS: BP 147/67
--- NOTE | 2023-11-22 06:27 | NUR ---
Shift summary. BP elevated, not within parameters to administer PRN antihypertensive. Otherwise VSS. Patient reported pain to groin, knees and eyes overnight. Administered PRN pain meds per orders. Notified MD of pt request for ambien and eye drops, received order for both. Patient slept well overnight after administration of one time dose of ambien.
[2023-11-22 07:27] VITALS: BP 179/95
[2023-11-22] MEDS ORDERED: Zolpidem Tartrate 5 MG Tab PO PRN (08:40)
[2023-11-22] MEDS ORDERED: SENN187 PO (14:04)
[2023-11-22] MEDS ORDERED: DOCU100 PO (14:04)
[2023-11-22] MEDS ORDERED: Tetrahydrozolin15 ML BOTHEYES (14:05)
[2023-11-22] MEDS ORDERED: ZOLP5 PO (14:06)
--- NOTE | 2023-11-22 14:54 | NUR ---
PT DISCHARGED HOME WITH HOME HEALTH, PT REPORTS PAIN HAS BEEN WELL CONTROLLED WITH CURRENT PAIN MEDICATION REGIMEN. PT DESCRIBES SEVERE PAIN AND BECOMES TEARFUL WITH AMBULATION. ALERT AND ORIENTED X4, ABLE TO MAKE NEEDS KNOWN. STATES THAT HIS PERSONAL WALKER WAS LOST IN ER. SEVERAL RN AND CASE MANAGEMENT HAVE ATTEMPTED TO LOCATE IT WITHOUT SUCCESS. PT EDUCATED ON IMPORTANCE OF ESTABLISHING A PCP IN ORDER TO CONTINUE WITH HOME HEALTH. PT VERBALIZES UNDERSTANDING.
[2023-11-22] MEDS ORDERED: Famotidine 20 MG Tab PO SCH (21:00)
== END 2023-11-22 15:00 | disposition home health service (06) ==
LOC: ER 10:18 → MEDS 10:19
PROVIDERS: Nurse Practitioner Acute Care; Physician Assistant; ADMIT Internal Medicine
DX: L40.8 Other psoriasis (principal); R53.1 Weakness; F10.20 Alcohol dependence, uncomplicated; I25.10 Atherosclerotic heart disease of native coronary artery without angina pectoris; I10 Essential (primary) hypertension; J45.909 Unspecified asthma, uncomplicated; Z88.5 Allergy status to narcotic agent; Z88.8 Allergy status to other drugs, medicaments and biological substances; Z79.82 Long term (current) use of aspirin; Z79.899 Other long term (current) drug therapy; W19.XXXA Unspecified fall, initial encounter
CPT/HCPCS: 36415; 80053; 83735; 85025; 85651; 86140; 94760; 96372; 97110; 97162; 97165; 97530; 97535; 99284-25; A9270; G0378; J1650; J7030

== ENCOUNTER 2023-12-11 16:14 | Observation (INO) | payer MEDICARE ==
[~2023-12-11] VITALS: Ht 172.7 cm; Wt 97.7 kg
[~2023-12-11 16:14] MED LIST changes: +SENN187 PO; +Tetrahydrozolin15 ML BOTHEYES; +ZOLP5 PO
[2023-12-11 17:15] LABS: BASOPHILS ABSOLUTE AUTO 0.03 K/mm3 (0.00-0.23); BASOPHILS PERCENT AUTO 0 % (0-2); EOSINOPHILS ABSOLUTE AUTO 0.01 K/mm3 (0.00-0.68); EOSINOPHILS PERCENT AUTO 0 % (0-6); Hematocrit 48.5 % (37.0-53.0); IMMATURE GRAN ABSOLUTE AUTO 0.03 K/mm3 (0.00-0.10); IMMATURE GRAN PERCENT AUTO 0 % (0-1); LYMPHOCYTES ABSOLUTE AUTO 0.83 K/mm3 (0.84-5.20); LYMPHOCYTES PERCENT AUTO 11 % (21-46); MONOCYTES ABSOLUTE AUTO 0.52 K/mm3 (0.16-1.47); MONOCYTES PERCENT AUTO 7 % (4-13); Mean Corpuscular HGB Conc 35.1 g/dL (31.5-36.5); Mean Corpuscular Volume 91 fL (80-100); NEUTROPHILS ABSOLUTE AUTO 6.31 K/mm3 (1.96-9.15); NEUTROPHILS PERCENT AUTO 82 % (41-73); Platelet Count 207 K/mm3 (150-400); RDW Coefficient Variation 14.4 % (11.7-14.2); RDW Standard Deviation 48.1 fL (35.1-46.3); Red Blood Cell Count 5.32 M/mm3 (4.30-5.90); White Blood Cell Count 7.73 K/mm3 (4.00-11.30)
[2023-12-11 17:46] LABS: Albumin, Blood 4.4 g/dL (3.4-5.0); Bilirubin, Total 0.8 mg/dL (0.1-1.0); Bun/Creatinine Ratio 14.9 (12.0-20.0); Calcium, Blood 9.8 mg/dL (8.5-10.1); Creatinine, Blood 0.67 mg/dL (0.60-1.20); Globulin, Blood 4.4 g/dL (2.2-4.0); Potassium, Blood 3.8 mmol/L (3.5-5.5); Total Protein, Blood 8.8 g/dL (6.4-8.2)
[2023-12-11] MEDS ORDERED: Thiamine HCl 100 MG Tab PO ONE (19:35)
[2023-12-11] MEDS ORDERED: LORazepam 2 MG/ML 1ML Injection IV ONE (19:35)
[2023-12-11] MEDS ORDERED: Folic Acid 1 MG TAB PO ONE (19:35)
[2023-12-11] MEDS ORDERED: Ketorolac Tromethamine 30mg Vial IV ONE (20:05)
[2023-12-11] MEDS ORDERED: Nitroglycerin 0.4 MG SUBL SL ONE (21:35)
[2023-12-11] MEDS ORDERED: Nitroglycerin/D5W 250 ML IV SCH (21:35)
[2023-12-11] MEDS ORDERED: FentaNYL Citrate 50 MCG/ML 2 ML Injection IV ONE (21:55)
[2023-12-11] MEDS ORDERED: FLU VACC TS2024-25(6MOS UP)/PF 45 MCG/0.5 ML SYRINGE IM ONE (22:50)
[2023-12-11] MEDS ORDERED: Magnesium Hydroxide Conc 10 ML UDC PO PRN (22:55)
[2023-12-11] MEDS ORDERED: Ondansetron HCl 2 MG / ML 2ML Vial IV PRN (22:55)
[2023-12-11] MEDS ORDERED: Acetaminophen 325 MG TABLET PO PRN (23:05)
[2023-12-11] MEDS ORDERED: LORazepam 1 MG Tab PO PRN ×2 (23:10)
[2023-12-11] MEDS ORDERED: LORazepam 2 MG/ML 1ML Injection IV PRN ×2 (23:10→23:30)
[2023-12-11] MEDS ORDERED: LORazepam 2 MG/ML 1ML Injection IM PRN ×2 (23:10→23:30)
[2023-12-11] MEDS ORDERED: NiCARdipine HCL 50 MG in NS 250 ML IV SCH (23:10)
[2023-12-12] VITALS (40 sets, daily range): BP systolic 120–184; BP diastolic 61–133
[2023-12-12] MEDS ORDERED: NiCARdipine HCL 500 MCG/5 ML SYR IV SCH
--- NOTE | 2023-12-12 02:00 | NUR ---
ASSUMPTION OF CARE PT LYING IN BED, ALERT AND ORIENTED TO ALL, IN NO APPARENT DISTRESS. HE DOES HOWEVER, ENDORSE A SEVERE HEADACHE (/). HR IS ELEVATED BUT SINUS RYTHYM IN THE LOW 1002 AND 110S AND ELEVATED BPS 156/95 WITH 2.5 MG/HR OF NICARDIPINE INFUSING INTO RIGHT WRIST PIV. RESPIRATIONS ARE UNLABORED AND SATURATIONS ARE STABLE ON RA. NO CHEST PAIN, SOB, ABDOMINAL PAIN, NAUSEA, VOMITING OR CONFUSION. PT HAS THE CALL LIGHT HANDY AND UNDERSTANDS HOW TO USE IT.
[2023-12-12 03:41] LABS: BASOPHILS ABSOLUTE AUTO 0.04 K/mm3 (0.00-0.23); BASOPHILS PERCENT AUTO 1 % (0-2); EOSINOPHILS ABSOLUTE AUTO 0.03 K/mm3 (0.00-0.68); EOSINOPHILS PERCENT AUTO 0 % (0-6); Hemoglobin 15.3 g/dL (13.5-17.5); IMMATURE GRAN ABSOLUTE AUTO 0.03 K/mm3 (0.00-0.10); IMMATURE GRAN PERCENT AUTO 0 % (0-1); LYMPHOCYTES ABSOLUTE AUTO 1.27 K/mm3 (0.84-5.20); LYMPHOCYTES PERCENT AUTO 15 % (21-46); MONOCYTES ABSOLUTE AUTO 1.12 K/mm3 (0.16-1.47); MONOCYTES PERCENT AUTO 13 % (4-13); Mean Corpuscular HGB 31.7 pg (26.0-34.0); Mean Corpuscular HGB Conc 34.8 g/dL (31.5-36.5); Mean Corpuscular Volume 91 fL (80-100); Mean Platelet Volume 10.1 fL (9.1-12.4); NEUTROPHILS ABSOLUTE AUTO 6.03 K/mm3 (1.96-9.15); NEUTROPHILS PERCENT AUTO 71 % (41-73); Platelet Count 195 K/mm3 (150-400); RDW Coefficient Variation 14.5 % (11.7-14.2); RDW Standard Deviation 48.1 fL (35.1-46.3); Red Blood Cell Count 4.82 M/mm3 (4.30-5.90); White Blood Cell Count 8.52 K/mm3 (4.00-11.30)
[2023-12-12 04:00] LABS: Albumin, Blood 3.5 g/dL (3.4-5.0); Bun/Creatinine Ratio 19.8 (12.0-20.0); Calcium, Blood 9.1 mg/dL (8.5-10.1); Creatinine, Blood 0.71 mg/dL (0.60-1.20); Globulin, Blood 3.6 g/dL (2.2-4.0); Potassium, Blood 3.3 mmol/L (3.5-5.5); Total Protein, Blood 7.1 g/dL (6.4-8.2)
[2023-12-12] MEDS ORDERED: FentaNYL Citrate 50 MCG/ML 2 ML Injection IV PRN (04:35)
[2023-12-12] MEDS ORDERED: Metoprolol Tartrate 25 MG Tab PO SCH (04:35)
[2023-12-12] MEDS ORDERED: Potassium Chloride 20 MEQ TabCR PO ONE ×3 (05:40→08:05)
--- NOTE | 2023-12-12 05:43 | NUR ---
SHIFT SUMMARY PT LYING IN BED SLEEPING WITH NICARDIPINE INFUSING AT 2.5MG/HR. PT WAS GIVEN 50MCG OF FENTANYL FOR HIS SEVERE HEADACHE AND HE SAYS IT DECREASED THE PAIN FOR A SHORT WHILE. PT WAS ALSO GIVEN A TOTAL OF 4 MG OF ATIVAN PO FOR ANXIETY/TREMORS AND OTHER POTENTIAL ALCHOHOL WITHDRAWAL SYMPTOMS. LAST CIWA WAS 10. HR SI NSR 90S AND BP IS 153/86. METOPROLOL TARTRATE 25MG PO GIVEN AT 0500 A FIRST TIME DOSE OF A RECENTLY PLACED ORDER FOR LOPRESSOR 25MG PO BID. PT SAT 97% ON RA. NO NAUSEA/VOMITING- PT ATE SEVERAL SANDWICHES DURING SHIFT WITHOUT INCIDENT. PT HAS CALL LIGHT HANDY. REPORT GIVEN TO ONCOMING NURSE.
[2023-12-12] MEDS ORDERED: Enoxaparin 40 MG/0.4 ML SYR SC SCH (09:00)
[2023-12-12] MEDS ORDERED: Thiamine HCl 100 MG Tab PO SCH (09:00)
[2023-12-12] MEDS ORDERED: Folic Acid 1 MG TAB PO SCH (09:00)
[2023-12-12] MEDS ORDERED: Losartan Potassium 25 MG Tab PO SCH (09:00)
[2023-12-12] MEDS ORDERED: METO25 PO (11:14)
[2023-12-12] MEDS ORDERED: LOSA50 PO (11:16)
--- NOTE | 2023-12-12 13:44 | NUR ---
"Spiritual Care Attempted | Pt. Request Pt. visit attempted on two occassions. In both attempts Pt. remained somnolent. Pt's nurse verbalized that this Pt. was expected to discharge soon. Will remain available to Pt. if requested."
--- NOTE | 2023-12-12 14:20 | NUR ---
SUMMARY PT A/O X4. SLOW TO RESPOND WHICH IS BASELINE FOR PT. OOB TO BATHROOM WITH MINIMAL ASSIST WITH CORDS AND LINES. NICARDIPINE GTT OFF EARLY THIS AM AND PO MEDS STARTED. BP BETTER CONTROLLED. PT DISCHARGED TO HOME. ASSISTED OUT TO FRIENDS CARE VIA W/C. PT HAS CANE AND BELONGINGS WITH HIM.
== END 2023-12-12 14:22 | disposition home or self-care (01) ==
LOC: ER 16:14 → PCU 16:15 → ICUE 16:15
PROVIDERS: Emergency Medicine; Student in an Organized Health Care Education/Training Program; ADMIT Internal Medicine
DX: I16.0 Hypertensive urgency (principal); I10 Essential (primary) hypertension; I25.10 Atherosclerotic heart disease of native coronary artery without angina pectoris; I25.2 Old myocardial infarction; L40.9 Psoriasis, unspecified; I69.920 Aphasia following unspecified cerebrovascular disease; F10.20 Alcohol dependence, uncomplicated; F11.20 Opioid dependence, uncomplicated; Z87.891 Personal history of nicotine dependence; Z66 Do not resuscitate
CPT/HCPCS: 36415; 70450; 71045; 80053; 80320; 84484; 85025; 93005; 93010; 93306; 96365-59; 96372; 96375; 96376; 99285-25; A9270; G0378; J1650; J1885; J2060; J3010; J7050

== ENCOUNTER 2024-01-23 10:11 | Emergency (ER) | payer OTHER ==
[~2024-01-23] VITALS: Ht 182.9 cm; Wt 108.9 kg
[~2024-01-23 10:11] MED LIST changes: +LOSA50 PO; +METO25 PO
[2024-01-23 10:33] VITALS: BP 192/114
[2024-01-23] MEDS ORDERED: ATOR20 PO (10:37)
[2024-01-23] MEDS ORDERED: LOSA50 PO (10:37)
[2024-01-23] MEDS ORDERED: METO25 PO (10:37)
== END 2024-01-23 10:46 | disposition home or self-care (01) ==
LOC: ER 10:11
DX: Z76.0 Encounter for issue of repeat prescription (principal); J45.909 Unspecified asthma, uncomplicated; I10 Essential (primary) hypertension; E78.5 Hyperlipidemia, unspecified; I25.2 Old myocardial infarction; Z87.891 Personal history of nicotine dependence; Z86.73 Personal history of transient ischemic attack (TIA), and cerebral infarction without residual deficits; Z79.82 Long term (current) use of aspirin; Z79.899 Other long term (current) drug therapy; Z88.5 Allergy status to narcotic agent; Z88.8 Allergy status to other drugs, medicaments and biological substances
CPT/HCPCS: 99281

== ENCOUNTER → 2024-08-26 | Outpatient (CLI) | payer OTHER ==
[2024-08-26 16:25] LABS: BASOPHILS ABSOLUTE AUTO 0.05 K/mm3 (0.00-0.23); BASOPHILS PERCENT AUTO 1 % (0-2); EOSINOPHILS ABSOLUTE AUTO 0.02 K/mm3 (0.00-0.68); EOSINOPHILS PERCENT AUTO 0 % (0-6); Hematocrit 49.3 % (37.0-53.0); Hemoglobin 16.9 g/dL (13.5-17.5); IMMATURE GRAN ABSOLUTE AUTO 0.04 K/mm3 (0.00-0.10); IMMATURE GRAN PERCENT AUTO 1 % (0-1); LYMPHOCYTES ABSOLUTE AUTO 1.71 K/mm3 (0.84-5.20); LYMPHOCYTES PERCENT AUTO 21 % (21-46); MONOCYTES ABSOLUTE AUTO 0.56 K/mm3 (0.16-1.47); MONOCYTES PERCENT AUTO 7 % (4-13); Mean Corpuscular HGB Conc 34.3 g/dL (31.5-36.5); Mean Corpuscular Volume 88 fL (80-100); NEUTROPHILS ABSOLUTE AUTO 5.81 K/mm3 (1.96-9.15); NEUTROPHILS PERCENT AUTO 71 % (41-73); NRBC ABSOLUTE 0.00 K/mm3 (0.00-0.02); NRBC Auto 0.0 /100 WBC (0.0-0.2); Platelet Count 273 K/mm3 (150-400); RDW Coefficient Variation 13.0 % (11.7-14.2); RDW Standard Deviation 41.2 fL (35.1-46.3)
[2024-08-26 16:39] LABS: Alanine Aminotransfer (ALT/SGP 55.0 U/L (12-78); Albumin, Blood 4.2 g/dL (3.4-5.0); Albumin/Globulin Ratio 1.0 (0.8-1.8); Anion Gap 18.0 mmol/L (3-11); Aspartate Aminotrans (AST/SGOT 47.0 U/L (12-37); Bilirubin, Total 0.5 mg/dL (0.1-1.0); Blood Urea Nitrogen 9.0 mg/dL (8-24); CO2, Blood 27.0 mmol/L (21-32); Calcium, Blood 9.5 mg/dL (8.5-10.1); Chloride, Blood 100.0 mmol/L (98-108); Creatinine, Blood 0.95 mg/dL (0.60-1.20); Globulin, Blood 4.3 g/dL (2.2-4.0); Glucose, Blood 127.0 mg/dL (70-99); Potassium, Blood 3.8 mmol/L (3.5-5.5); Sodium, Blood 141.0 mmol/L (136-145); Total Protein, Blood 8.5 g/dL (6.4-8.2)
== END ==
LOC: LAB 16:21 → LAB SHORT 16:21
PROVIDERS: Physician Assistant
DX: B37.9 Candidiasis, unspecified (principal)
CPT/HCPCS: 80053; 85025

== ENCOUNTER 2024-09-09 11:58 | Emergency (ER) | payer OTHER ==
[~2024-09-09] VITALS: Ht 182.9 cm; Wt 124.3 kg
[2024-09-09 13:30] LABS: Ethanol (Alcohol), Blood, Med 264 mg/dL
[2024-09-09 13:34] LABS: Salicylate <1.7 mg/dL (2.8-20.0)
[2024-09-09 13:41] LABS: Alanine Aminotransfer (ALT/SGP 66 U/L (12-78); Albumin, Blood 3.6 g/dL (3.4-5.0); Albumin/Globulin Ratio 0.9 (0.8-1.8); Anion Gap 11 mmol/L (3-11); Aspartate Aminotrans (AST/SGOT 65 U/L (12-37); Bilirubin, Total 0.4 mg/dL (0.1-1.0); Blood Urea Nitrogen 12 mg/dL (8-24); CO2, Blood 25 mmol/L (21-32); Calcium, Blood 8.7 mg/dL (8.5-10.1); Chloride, Blood 104 mmol/L (98-108); Creatinine, Blood 0.76 mg/dL (0.60-1.20); Globulin, Blood 4.0 g/dL (2.2-4.0); Glucose, Blood 113 mg/dL (70-99); Potassium, Blood 3.7 mmol/L (3.5-5.5); Sodium, Blood 136 mmol/L (136-145); Total Protein, Blood 7.6 g/dL (6.4-8.2)
[2024-09-09 13:42] LABS: Acetaminophen, Random <2.0 ug/mL (10.0-30.0)
[2024-09-09 15:34] LABS: Source, Urine Clean Catch
[2024-09-09 16:01] LABS: Bilirubin, Urine Neg (Neg); Color, Urine Yellow (P-Yellow); Glucose Qualitative, Urine Neg (Neg); Ketones, Urine Neg (Neg); Leukocyte Esterase, Urine Neg (Neg); Protein, Urine 2+ (Neg); Specific Gravity, Urine 1.020 (1.003-1.022); Urobilinogen, Urine NORM (Normal)
[2024-09-09 16:21] LABS: U Amphetamine Screen Not Detected; U Barbituate Screen Not Detected; U Benzodiazapine Screen Not Detected; U Buprenorphine Screen Not Detected; U Cannabinoids Screen Not Detected; U Cocaine Screen Not Detected; U Methadone Screen Not Detected; U Methamphetamine Screen Not Detected; U Opiates Screen Not Detected; U Oxycodone Screen Not Detected; U Phencyclidine Screen Not Detected
[2024-09-09 16:47] LABS: White Blood Cells, Urine 0-2 /hpf (0-5)
[2024-09-09 18:12] LABS: BASOPHILS ABSOLUTE AUTO 0.04 K/mm3 (0.00-0.23); BASOPHILS PERCENT AUTO 1 % (0-2); EOSINOPHILS ABSOLUTE AUTO 0.05 K/mm3 (0.00-0.68); EOSINOPHILS PERCENT AUTO 1 % (0-6); Hematocrit 46.6 % (37.0-53.0); Hemoglobin 15.7 g/dL (13.5-17.5); IMMATURE GRAN ABSOLUTE AUTO 0.06 K/mm3 (0.00-0.10); IMMATURE GRAN PERCENT AUTO 1 % (0-1); LYMPHOCYTES ABSOLUTE AUTO 1.38 K/mm3 (0.84-5.20); LYMPHOCYTES PERCENT AUTO 17 % (21-46); MONOCYTES ABSOLUTE AUTO 1.11 K/mm3 (0.16-1.47); MONOCYTES PERCENT AUTO 14 % (4-13); Mean Corpuscular HGB Conc 33.7 g/dL (31.5-36.5); Mean Corpuscular Volume 90 fL (80-100); NEUTROPHILS ABSOLUTE AUTO 5.27 K/mm3 (1.96-9.15); NEUTROPHILS PERCENT AUTO 67 % (41-73); NRBC ABSOLUTE 0.00 K/mm3 (0.00-0.02); NRBC Auto 0.0 /100 WBC (0.0-0.2); Platelet Count 168 K/mm3 (150-400); RDW Coefficient Variation 14.7 % (11.7-14.2); RDW Standard Deviation 47.7 fL (35.1-46.3)
[2024-09-09] MEDS ORDERED: Amoxicillin500 MG PO (18:52)
[2024-09-09 18:55] VITALS: BP 182/81
== END 2024-09-09 19:07 | disposition home or self-care (01) ==
LOC: ER 11:58
PROVIDERS: Emergency Medicine; Physician Assistant
DX: F10.90 Alcohol use, unspecified, uncomplicated (principal); K05.10 Chronic gingivitis, plaque induced; I10 Essential (primary) hypertension; E78.5 Hyperlipidemia, unspecified; I25.2 Old myocardial infarction; I25.10 Atherosclerotic heart disease of native coronary artery without angina pectoris; Z86.73 Personal history of transient ischemic attack (TIA), and cerebral infarction without residual deficits; Z87.891 Personal history of nicotine dependence; Z88.5 Allergy status to narcotic agent; Z88.8 Allergy status to other drugs, medicaments and biological substances; Z79.82 Long term (current) use of aspirin; Z79.899 Other long term (current) drug therapy
CPT/HCPCS: 36415; 80053; 80320; 81001; 85025; 99284; A9270; G0480

== ENCOUNTER 2024-09-18 10:37 | Emergency (ER) | payer OTHER ==
[~2024-09-18] VITALS: Ht 175.3 cm; Wt 106.6 kg
[~2024-09-18 10:37] MED LIST changes: +Amoxicillin500 MG PO
[2024-09-18 10:56] VITALS: BP 190/98
[2024-09-18] MEDS ORDERED: Dexamethasone Sod Phos 10 MG/ML 1ML VIAL PO ONE (11:00)
[2024-09-18] MEDS ORDERED: METPRE4DP PO (11:01)
== END 2024-09-18 11:15 | disposition home or self-care (01) ==
LOC: ER 10:37
DX: L40.9 Psoriasis, unspecified (principal); I25.10 Atherosclerotic heart disease of native coronary artery without angina pectoris; I10 Essential (primary) hypertension; J45.909 Unspecified asthma, uncomplicated; I69.320 Aphasia following cerebral infarction; E78.5 Hyperlipidemia, unspecified; I25.2 Old myocardial infarction; Z87.891 Personal history of nicotine dependence; Z88.8 Allergy status to other drugs, medicaments and biological substances; Z88.5 Allergy status to narcotic agent; Z79.82 Long term (current) use of aspirin; Z79.899 Other long term (current) drug therapy
CPT/HCPCS: 99282; J1100